=== PATIENT | male | born 1975 ===

== ENCOUNTER 2021-03-26 09:03 | Emergency (ER) | payer OTHER, SELFPAY ==
--- NOTE | ~2021-03-26 | CT_ITS ---
EXAMINATION: CT brain wo con DATE: 03/26/2021 11:48 INDICATION: Head injury with blurry vision and frontal head laceration TECHNIQUE: Computed tomography (CT) of the head was performed without intravenous contrast. Sagittal and coronal reconstructions were performed. The mA was adjusted according to patient size. Iterative reconstruction technique was employed. The dose-length product was 681.00 mGy-cm. COMPARISON: None FINDINGS: No fracture. No acute intracranial hemorrhage, acute infarction or abnormal extra axial fluid collect ion. Ventricles are normal and symmetric. No mass/mass effect. The orbits, paranasal sinuses and mast oid air cells are normal. IMPRESSION: 1. No fracture or acute intracranial process. Reviewed, dictated and finalized at location A. [employer] ANALYST
--- NOTE | ~2021-03-26 | CT_ITS ---
EXAMINATION: CT cervical spine wo con DATE: 03/26/2021 11:48 INDICATION: Head injury TECHNIQUE: Computed tomography (CT) of the cervical spine was performed without intravenous contrast. Automated exposure control and iterative reconstruction technique were employed. The dose-length pro duct was 584.11 mGy-cm. COMPARISON: None FINDINGS: Alignment is normal. Vertebral body and disc heights are normal. Cervical soft tissues are unremarkab le. Visualized airway and upper lungs are clear. The following disc levels are specifically discussed : C2-C3: The disc does not extend beyond the endplate margin. There is minimal bilateral uncovertebral joint osteoarthritis. There is mild bilateral facet joint osteoarthritis. There is no neural foramina l stenosis. There is no central canal stenosis. C3-C4: Disc is mildly bulging. There is mild right and moderate left uncovertebral joint osteoarthrit is. There is mild bilateral facet joint osteoarthritis. There is mild left neural foraminal stenosis. There is mild central canal stenosis. C4-C5: Small central disc protrusion and minimal ossification along the posterior longitudinal ligame nt. There is mild bilateral uncovertebral joint osteoarthritis. There is mild bilateral facet joint o steoarthritis. There is minimal right neural foraminal stenosis. There is mild central canal stenosis . C5-C6: Disc is mildly bulging. There is mild left and minimal right uncovertebral joint osteoarthriti s. There is minimal bilateral facet joint osteoarthritis. There is no neural foraminal stenosis. Ther e is minimal central canal stenosis. C6-C7: The disc does not extend beyond the endplate margin. There is mild left uncovertebral joint os teoarthritis. There is mild bilateral facet joint osteoarthritis. There is no neural foraminal stenos is. There is no central canal stenosis. C7-T1: The disc does not extend beyond the endplate margin. There is no uncovertebral joint osteoarth ritis. There is mild left and moderate right facet joint osteoarthritis. There is no neural foraminal stenosis. There is no central canal stenosis. IMPRESSION: 1. Mild cervical spondylosis. No acute osseous abnormality. Reviewed, dictated and finalized at location A. BER
[2021-03-26 09:38] VITALS: BP 151/87; PULSE 87; RESP 16; TEMP 36.4; O2SAT 99
--- NOTE | 2021-03-26 11:21 | ED.GENADULT ---
HPI - General Adult General Chief complaint: Head Injury Stated complaint: Head Injury Time Seen by Provider: 03/26/21 11:00 Source: patient Mode of arrival: ambulatory Limitations: no limitations History of Present Illness HPI narrative: Patient is a 45-year-old male with chief complaint of laceration to the frontal aspect of his head after briskly walking into a steel gate while working. Patient reports that he did not have loss of consciousness however he does have a headache. He reports that he hit it with a lot of force but did not fall after impact. He reports blurry vision for a few minutes that now has resolved. He denies changes in hearing or bleeding from his orifices. Patient denies any neurological deficits. Patient reports chronic medical history significant for hypothyroidism. Related Data Home Medications Medication Instructions Recorded Confirmed levothyroxine DAILY 03/26/21 Allergies Allergy/AdvReac Type Severity Reaction Status Date / Time No Known Allergies Allergy Mild Verified 03/26/21 10:39 Review of Systems Review of Systems: CONSTITUTIONAL: Denies fever, chills, or sweats. EYES: Denies visual changes, redness, or discharge. ENT: Denies rhinorrhea, congestion, sore throat, or otalgia. CARDIOVASCULAR: Denies chest pain, palpitations, or edema. RESPIRATORY: Denies cough or dyspnea. GASTROINTESTINAL: Denies abdominal pain, nausea, vomiting, or diarrhea. GENITOURINARY: Denies dysuria or hematuria. SKIN: Reports laceration denies rash or itching. MUSCULOSKELETAL: Denies back pain, joint pain, or myalgia. NEUROLOGIC: Reports headache denies numbness, dizziness, or weakness. PSYCHIATRIC: Denies anxiety or depression. Exam Narrative: GENERAL: Well-appearing, well-nourished, and in no acute distress. HEAD: Normocephalic, Y-shaped laceration to the frontal aspect of patient's scalp. Bleeding is controlled with dressing. EYES: PERRLA and EOMI. ENT: Nares clear, no rhinorrhea or epistaxis. Mucous membranes moist. Bilateral TMs pearly bray nonbulging. No hemotympanum. NECK: Supple. Tightness of palpation of cervical spine. CHEST: Clear to auscultation. No respiratory distress. No wheezes rales or rhonchi HEART: Regular rate and rhythm. No murmur heard. Normal peripheral pulses. EXTREMITIES: Normal range of motion. No edema. SKIN: See head. Warm, dry, no rash. NEURO: No focal deficits. Alert and oriented x3. Gait steady. Speech clear and appropriate. No apparent neurological deficits. PSYCH: Normal mood and affect. Course Vital Signs Vital signs: Vital Signs Temperature 97.6 F 03/26/21 09:38 Pulse Rate 87 03/26/21 09:38 Respiratory Rate 16 03/26/21 09:38 Blood Pressure 151/87 H 03/26/21 09:38 Pulse Oximetry 99 03/26/21 09:38 Temperature 97.6 F 03/26/21 09:38 Pulse Rate 87 03/26/21 09:38 Respiratory Rate 16 03/26/21 09:38 Blood Pressure 151/87 H 03/26/21 09:38 Pulse Oximetry 99 03/26/21 09:38 Procedures Laceration Laceration 1: Site: scalp Size (cm): 3 Description: linear Depth: simple, single layer Local Anesthetic: lidocaine 1% Amount of anesthesia used (mL): 1.5 Pre-repair: irrigated extensively ====== Skin Level ====== Skin layer closed with: yovani Number of sutures: 3 ====== Subcutaneous Layer ====== ====== Muscle Layer ====== ====== Tendon Layer ====== Dressing: Patient tolerated procedure well wound care instructions given. Medical Decision Making MDM Narrative Medical decision making narrative: Please call or consistent with patient hit the gait he did so pretty hard in his neck hyperextended. Discussed with patient risk and benefits of CT imaging. Patient would like to receive CT imaging. Patient will receive CT head and neck. CT of head and neck are negative for abnormal findings. Discussed with patient head precautions and wound care instruc
--- NOTE | 2021-03-26 11:32 | PC.NURSE ---
Report and care to Peter
[2021-03-26] MEDS: IBUPROFEN 400 MG TABLET 800 MG PO (13:22)
[2021-03-26 13:24] VITALS: BP 154/95; PULSE 79; RESP 16; TEMP 36.8; O2SAT 96
== END 2021-03-26 13:28 | disposition home or self-care (01) ==
PROVIDERS: Emergency Provider Emergency Medicine
DX: S01.01XA Laceration without foreign body of scalp, initial encounter (principal); W22.8XXA Striking against or struck by other objects, initial encounter
CPT/HCPCS: 12002; 70450; 72125; 99284; A9270